=== PATIENT | female | born 1960 | race Caucasian/White ===

== ENCOUNTER 2024-12-16 13:23 | Emergency (ER) | payer SELFPAY ==
[~2024-12-16] VITALS: Ht 160 cm; Wt 65.8 kg
[2024-12-16] MEDS ORDERED: ACET-2030 PO (14:31)
[2024-12-16 14:49] VITALS: BP 135/80; TEMP 98.3; O2SAT 100
== END 2024-12-16 14:49 | disposition home or self-care (01) ==
LOC: ER 13:28
DX: S80.02XA Contusion of left knee, initial encounter (principal); I10 Essential (primary) hypertension; E11.9 Type 2 diabetes mellitus without complications; W10.9XXA Fall (on) (from) unspecified stairs and steps, initial encounter; Y93.89 Activity, other specified; Y92.89 Other specified places as the place of occurrence of the external cause; Y99.8 Other external cause status
CPT/HCPCS: 73564-TC